=== PATIENT | female | born 1955 | race Caucasian/White ===

== ENCOUNTER 2016-11-07 12:15 | Inpatient (IN) | payer SELFPAY ==
[2016-11-07 12:43] LABS: MPV 8.5 fL (7.4-10.4)
[2016-11-07 12:44] LABS: AUTOMATED BASOPHIL 0.7 % (0-2); AUTOMATED EOSINOPHIL 4.8 % (0-5); AUTOMATED LYMPH 40.9 % (17-44); AUTOMATED MONOCYTE 9.6 % (3-10)
[2016-11-07 12:55] LABS: PARTIAL THROMB. TIME 30.6 SEC (22-35); PT-INR 1.1
[2016-11-07 12:59] LABS: BLOOD UREA NITROGEN 12 MG/DL (7-17); CALC CORRECTED 9.5 MG/DL (8.4-10.2); CALCIUM 9.4 MG/DL (8.4-10.2); CALCULATED OSMOLALITY 267 MOs/Kg (270-290); CHLORIDE 106 mEq/L (98-107); GLUCOSE 112 MG/DL (70-99); SODIUM LEVEL 138 mEq/L (137-146); TOTAL PROTEIN 7.4 G/DL (6.3-8.2)
--- NOTE | 2016-11-07 15:01 | DIRPT ---
CLINICAL DATA: Chest pain and shortness of Breath for 2-3 days. EXAM: CHEST 2 VIEW COMPARISON: 10/15/2015 FINDINGS: The cardiac silhouette, mediastinal and hilar contours are within normal limits and stable. There are chronic bronchitic interstitial lung changes but no infiltrates, edema or effusions. The bony thorax is intact. IMPRESSION: Chronic bronchitic changes possibly related to smoking. No infiltrates or effusions. Electronically Signed By: Paige Denney M.D. On: 11/07/2016 14:59
[2016-11-07] MEDS ORDERED: NS 1,000 ML IV ONE (15:16)
[2016-11-07] MEDS ORDERED: METHYLPREDNISOLONE 125 MG/2 ML VIAL IV ONE (15:16)
[2016-11-07] MEDS ORDERED: Albuterol/Ipratropium Neb 3 ML NEB NEB ONE (15:16)
--- NOTE | 2016-11-07 15:53 | EDPRACDOC ---
- General Information Information Source: Patient Mode Of Arrival: Car - History of Present Illness Onset: YESTERDAY HPI: PT STATES SHE IS HAVING SHOB WITH COUGH. NO ACUTE DISTRESS NOTED. DENIES FEVER, CHILLS, NAUSEA OR VOMITING Shortness of Breath: Mild Relevant History: Reports: None Cough: Reports: Productive, Yellow Rhinorrhea: Reports: Clear Ear Symptoms: Reports: None SOB Worsens with: Reports: Exertion, Movement, Coughing, Lying Flat, Position SOB Improves with: Reports: Sitting up, Rest, Position <Estelle Reddy - Last Filed: 11/07/16 15:51> <Marco Antonio Montes - Last Filed: 11/07/16 16:56> - General Information Chief Complaint: Dyspnea/Resp distress Stated Complaint: TROUBLE BREATHING Time Seen by Provider: 11/07/16 15:15 Home Medications: Home Medications Acetaminophen [Tylenol 8 Hour/Tylenol Arthritis] 650 mg PO Q8H 11/07/16 Albuterol/Ipratropium Neb [Duoneb] 3 ml NEB Q6H PRN #1 box 11/07/16 Benzonatate [Tessalon] 200 mg PO TID #20 per 11/07/16 Guaifenesin/Codeine Phosphate [Cheratussin AC Syrup] 5 ml PO Q4-6H #200 liquid 11/07/16 Methylprednisolone [Medrol] 4 mg PO DAILY #1 tab.ds.pk 11/07/16 Allergies/Adverse Reactions: Allergies Allergy/AdvReac Type Severity Reaction Status Date / Time hydrochlorothiazide Allergy Unknown Verified 11/07/16 12:29 Penicillins Allergy Hives* Verified 11/07/16 12:29 ED Past Medical History - History Reviewed Yes Nurses notes reviewed and agree except as marked - Patient Medical History Cardiac History: Reports: Hypertension, Valvular Heart Disease Respiratory History: Reports: COPD, Pneumonia, Emphysema GI/ History: Reports: Kidney Stones, Gastroesophageal Reflux Musculoskeletal History: Reports: Arthritis, Osteoarthritis Psychological History: Reports: Depression Surgical History: Reports: Appendectomy, Cholecystectomy, Other (right knee, right elbow, left eye, tubal ligation,). Denies: Hysterectomy - Family Medical History Reports: Hypertension (mother), Diabetes (mother), Cancer (father bladder), Cardiac Disorders (parents) - Social Medical History Smoking Status: Heavy tobacco smoker (5 or more cigarettes/day or daily pipe/ cigar) <Estelle Reddy - Last Filed: 11/07/16 15:51> EDM Review of Systems - Review of Systems ROS Negative Except as Marked: Yes All systems reviewed and were negative except as marked <Estelle Reddy - Last Filed: 11/07/16 15:51> - Physical Exam Constitutional: Alert Oriented to: Time, Person, Place Last recorded Vital Signs: Last Vital Signs Temp 98.5 F 11/07/16 12:29 Pulse 71 11/07/16 14:45 Resp 20 11/07/16 14:45 BP 146/76 11/07/16 14:45 Pulse Ox 93 11/07/16 14:45 Oxygen Pulse Oxygen Saturation 93 O2 Device Room Air Oxygen Flow Rate Fraction of Inspired Oxygen ( FIO2) - HEENT Head: Normal ( normocephalic) Eye Exam: Normal (PERRL, EOMI, Sclera white) Oropharynx: Normal (Pharynx:Moist without exudate,Gums-no swelling) Tympanic Membrane: Normal Nose: No Symptoms Reported (septum midline) Neck: Normal (FROM, trachea at midline) - Respiratory/Cardiovascular Respiratory: Tachypnea, Wheezes Cardiovascular: Normal (RRR without murmur, gallop or rub) - GI Auscultation: Normal (NABS) Palpation: Normal (Soft,No rebound or guarding, non distended) Tenderness: Non tender Gtz's Sign: Negative Rectal Exam: Deferred - Musculoskeletal Back: Normal (Non-Tender) Extremities: Normal (Normal tone, Pulses 2+ No cyanosis or edema, FROM) - Integumentary Skin: Normal, Warm, Dry Lymphatics: Normal (no adenopathy) - Neurologic Memory Impaired: Normal Motor Function: Normal (Normal tone, Pulses 2+ No cyanosis or edema, FROM) Cranial Nerve: Normal (CN II-X11 intact sensation, strength 5/5) Cerebellar: Normal Mood Description: Normal Perception: Normal <Estelle Reddy - Last Filed: 11/07/16 15:51> - Physical Exam Last recorded Vital Signs: Last Vital Signs Temp 98.5 F 11/07/16 12:29 Pulse 82 11/07/16 16:03 Resp 20 11/07/16 16:03 BP 140/72 11/07/16 16:03 Pulse Ox 94 11/07/16 16:03 Oxygen Pulse Oxygen Saturation 94 O2 Device Room Air Oxygen Flow Rate Fraction of Inspired Oxygen ( FIO2) <Marco Antonio Montes - Last Filed: 11/07/16 16:56> ED SOB MDM - Differential Diagnosis Differential Diagnosis: Other - Results Result Diagrams: 11/07/16 12:30 11/07/16 12:30 Results: WBC 8.9 xk/uL (3.8-10.8) 11/07/16 12:30 RBC 5.07 xM/uL (4.20-5.40) 11/07/16 12:30 Hgb 16.2 g/dL (12.0-16.0) H 11/07/16 12:30 Hct 47.6 % (36-47) H 11/07/16 12:30 MCV 94 fL (81-99) 11/07/16 12:30 MCH 31.9 pg (27-32) 11/07/16 12:30 MCHC 34.0 g/dl (33-36) 11/07/16 12:30 RDW 13.9 % (11.5-14.5) 11/07/16 12:30 Plt Count 236 xk/uL (130-400) 11/07/16 12:30 MPV 8.5 fL (7.4-10.4) 11/07/16 12:30 Neut % (Auto) 44.0 % (45-76) L 11/07/16 12:30 Lymph % (Auto) 40.9 % (17-44) 11/07/16 12:30 [place] % (Auto) 9.6 % (3-10) 11/07/16 12:30 Eos % (Auto) 4.8 % (0-5) 11/07/16 12:30 Baso % (Auto) 0.7 % (0-2) 11/07/16 12:30 Absolute Neuts (auto) 3.92 xk/uL (1.7-8.2) 11/07/16 12:30 Absolute Lymphs (auto) 3.56 xk/uL (0.65-4.75) 11/07/16 12:30 PT 10.8 SEC (9.2-11.2) 11/07/16 12:30 INR 1.1 11/07/16 12:30 APTT 30.6 SEC (22-35) 11/07/16 12:30 Sodium 138 mEq/L (137-146) 11/07/16 12:30 Potassium 4.0 mEq/L (3.5-5.1) 11/07/16 12:30 Chloride 106 mEq/L (98-107) 11/07/16 12:30 Carbon Dioxide 21 mMOL/L (22-33) L 11/07/16 12:30 Anion Gap 15 mEq/L (8-16) 11/07/16 12:30 BUN 12 MG/DL (7-17) 11/07/16 12:30 Creatinine 0.80 MG/DL (0.52-1.04) 11/07/16 12:30 Estimated GFR (MDRD) > 60 mL/min (>=60) 11/07/16 12:30 Glucose 112 MG/DL (70-99) H 11/07/16 12:30 Calculated Osmolality 267 MOs/Kg (270-290) L 11/07/16 12:30 Calcium 9.4 MG/DL (8.4-10.2) 11/07/16 12:30 Corrected Calcium 9.5 MG/DL (8.4-10.2) 11/07/16 12:30 Total Bilirubin 0.6 MG/DL (0.2-1.3) 11/07/16 12:30 AST 25 IU/L (14-36) 11/07/16 12:30 ALT 35 IU/L (9-52) 11/07/16 12:30 Alkaline Phosphatase 94 IU/L (38-126) 11/07/16 12:30 Troponin I < 0.01 ng/mL (<.04) 11/07/16 12:30 Pph-N-Hidpeqoquiu Pept 263 pg/mL (0-900) 11/07/16 12:30 Total Protein 7.4 G/DL (6.3-8.2) 11/07/16 12:30 Albumin 3.9 G/DL (3.5-5.0) 11/07/16 12:30 Lab Results 11/07/16 11/07/16 11/07/16 12:30 12:30 12:30 WBC 8.9 RBC 5.07 Hgb 16.2 H Hct 47.6 H MCV 94 MCH 31.9 MCHC 34.0 RDW 13.9 Plt Count 236 MPV 8.5 Neut % (Auto) 44.0 L Lymph % (Auto) 40.9 [place] % (Auto) 9.6 Eos % (Auto) 4.8 Baso % (Auto) 0.7 Absolute Neuts (auto) 3.92 Absolute Lymphs (auto) 3.56 PT 10.8 INR 1.1 APTT 30.6 Sodium 138 Potassium 4.0 Chloride 106 Carbon Dioxide 21 L Anion Gap 15 BUN 12 Creatinine 0.80 Estimated GFR (MDRD) > 60 Glucose 112 H Calculated Osmolality 267 L Calcium 9.4 Corrected Calcium 9.5 Total Bilirubin 0.6 AST 25 ALT 35 Alkaline Phosphatase 94 Troponin I < 0.01 Kbx-Y-Qsbgazelwht Pept 263 Total Protein 7.4 Albumin 3.9 <Estelle Reddy - Last Filed: 11/07/16 15:51> - Results Result Diagrams: 11/07/16 12:30 11/07/16 12:30 Results: WBC 8.9 xk/uL (3.8-10.8) 11/07/16 12:30 RBC 5.07 xM/uL (4.20-5.40) 11/07/16 12:30 Hgb 16.2 g/dL (12.0-16.0) H 11/07/16 12:30 Hct 47.6 % (36-47) H 11/07/16 12:30 MCV 94 fL (81-99) 11/07/16 12:30 MCH 31.9 pg (27-32) 11/07/16 12:30 MCHC 34.0 g/dl (33-36) 11/07/16 12:30 RDW 13.9 % (11.5-14.5) 11/07/16 12:30 Plt Count 236 xk/uL (130-400) 11/07/16 12:30 MPV 8.5 fL (7.4-10.4) 11/07/16 12:30 Neut % (Auto) 44.0 % (45-76) L 11/07/16 12:30 Lymph % (Auto) 40.9 % (17-44) 11/07/16 12:30 [place] % (Auto) 9.6 % (3-10) 11/07/16 12:30 Eos % (Auto) 4.8 % (0-5) 11/07/16 12:30 Baso % (Auto) 0.7 % (0-2) 11/07/16 12:30 Absolute Neuts (auto) 3.92 xk/uL (1.7-8.2) 11/07/16 12:30 Absolute Lymphs (auto) 3.56 xk/uL (0.65-4.75) 11/07/16 12:30 PT 10.8 SEC (9.2-11.2) 11/07/16 12:30 INR 1.1 11/07/16 12:30 APTT 30.6 SEC (22-35) 11/07/16 12:30 Puncture Site Right radial 11/07/16 16:05 pH 7.410 pH UNITS (7.35-7.45) 11/07/16 16:05 pCO2 38.0 mmHg (35-45) 11/07/16 16:05 pO2 53.0 mmHg (80-100) L 11/07/16 16:05 HCO3 24.1 MMOL/L (22-26) 11/07/16 16:05 Total CO2 25.3 MMOL/L (23-27) 11/07/16 16:05 Base Excess -0.3 (+/- 2) 11/07/16 16:05 FiO2 % 21% 11/07/16 16:05 Specimen Drawn By Stana 11/07/16 16:05 Sodium 138 mEq/L (137-146) 11/07/16 12:30 Potassium 4.0 mEq/L (3.5-5.1) 11/07/16 12:30 Chloride 106 mEq/L (98-107) 11/07/16 12:30 Carbon Dioxide 21 mMOL/L (22-33) L 11/07/16 12:30 Anion Gap 15 mEq/L (8-16) 11/07/16 12:30 BUN 12 MG/DL (7-17) 11/07/16 12:30 Creatinine 0.80 MG/DL (0.52-1.04) 11/07/16 12:30 Estimated GFR (MDRD) > 60 mL/min (>=60) 11/07/16 12:30 Glucose 112 MG/DL (70-99) H 11/07/16 12:30 Calculated Osmolality 267 MOs/Kg (270-290) L 11/07/16 12:30 Calcium 9.4 MG/DL (8.4-10.2) 11/07/16 12:30 Corrected Calcium 9.5 MG/DL (8.4-10.2) 11/07/16 12:30 Total Bilirubin 0.6 MG/DL (0.2-1.3) 11/07/16 12:30 AST 25 IU/L (14-36) 11/07/16 12:30 ALT 35 IU/L (9-52) 11/07/16 12:30 Alkaline Phosphatase 94 IU/L (38-126) 11/07/16 12:30 Troponin I < 0.01 ng/mL (<.04) 11/07/16 15:35 Gzw-W-Nyqwpkeeadh Pept 263 pg/mL (0-900) 11/07/16 12:30 Total Protein 7.4 G/DL (6.3-8.2) 11/07/16 12:30 Albumin 3.9 G/DL (3.5-5.0) 11/07/16 12:30 Urine Color Yellow 11/07/16 15:55 Urine Clarity Clear 11/07/16 15:55 Urine pH 5.0 (5.0-8.0) 11/07/16 15:55 Ur Specific [place] 1.005 (1.003-1.035) 11/07/16 15:55 Urine Protein Neg (NEG/TRACE) 11/07/16 15:55 Urine Glucose (UA) Neg (NEGATIVE) 11/07/16 15:55 Urine Ketones Neg (NEGATIVE) 11/07/16 15:55 Urine Occult Blood Neg (NEG/TRACE) 11/07/16 15:55 Urine Nitrite Neg (NEGATIVE) 11/07/16 15:55 Urine Bilirubin Neg (NEGATIVE) 11/07/16 15:55 Urine Urobilinogen <2.0 MG/DL (0-1) 11/07/16 15:55 Ur Leukocyte Esterase Neg (NEGATIVE) 11/07/16 15:55 Urine RBC 0-2 (0-5) 11/07/16 15:55 Urine WBC 0-2 (0-5) 11/07/16 15:55 Lab Results 11/07/16 11/07/16 11/07/16 16:05 15:55 15:35 WBC RBC Hgb Hct MCV MCH MCHC RDW Plt Count MPV Neut % (Auto) Lymph % (Auto) [place] % (Auto) Eos % (Auto) Baso % (Auto) Absolute Neuts (auto) Absolute Lymphs (auto) PT INR APTT Puncture Site Right radial pH 7.410 pCO2 38.0 pO2 53.0 L HCO3 24.1 Total CO2 25.3 Base Excess -0.3 FiO2 % 21% Specimen Drawn By Stana Sodium Potassium Chloride Carbon Dioxide Anion Gap BUN Creatinine Estimated GFR (MDRD) Glucose Calculated Osmolality Calcium Corrected Calcium Total Bilirubin AST ALT Alkaline Phosphatase Troponin I < 0.01 Ypr-C-Wjyeisqbwzg Pept Total Protein Albumin Urine Color Yellow Urine Clarity Clear Urine pH 5.0 Ur Specific [place] 1.005 Urine Protein Neg Urine Glucose (UA) Neg Urine Ketones Neg Urine Occult Blood Neg Urine Nitrite Neg Urine Bilirubin Neg Urine Urobilinogen <2.0 Ur Leukocyte Esterase Neg Urine RBC 0-2 Urine WBC 0-2 11/07/16 11/07/16 11/07/16 12:30 12:30 12:30 WBC 8.9 RBC 5.07 Hgb 16.2 H Hct 47.6 H MCV 94 MCH 31.9 MCHC 34.0 RDW 13.9 Plt Count 236 MPV 8.5 Neut % (Auto) 44.0 L Lymph % (Auto) 40.9 [place] % (Auto) 9.6 Eos % (Auto) 4.8 Baso % (Auto) 0.7 Absolute Neuts (auto) 3.92 Absolute Lymphs (auto) 3.56 PT 10.8 INR 1.1 APTT 30.6 Puncture Site pH pCO2 pO2 HCO3 Total CO2 Base Excess FiO2 % Specimen Drawn By Sodium 138 Potassium 4.0 Chloride 106 Carbon Dioxide 21 L Anion Gap 15 BUN 12 Creatinine 0.80 Estimated GFR (MDRD) > 60 Glucose 112 H Calculated Osmolality 267 L Calcium 9.4 Corrected Calcium 9.5 Total Bilirubin 0.6 AST 25 ALT 35 Alkaline Phosphatase 94 Troponin I < 0.01 Nmu-V-Triijmywmdy Pept 263 Total Protein 7.4 Albumin 3.9 Urine Color Urine Clarity Urine pH Ur Specific [place] Urine Protein Urine Glucose (UA) Urine Ketones Urine Occult Blood Urine Nitrite Urine Bilirubin Urine Urobilinogen Ur Leukocyte Esterase Urine RBC Urine WBC <Marco Antonio Montes - Last Filed: 11/07/16 16:56> - Departure Disposition: Home Education/Counseling Given To: Patient Education/Counseling Given Regarding: Diagnosis, Treatment, Prognosis, Follow Up <Estelle Reddy - Last Filed: 11/07/16 15:51> - Departure Yes I personally saw and evaluated the patient. Disposition: Admit IP To This Hospital Decision to Admit Time: 16:56 Decision to admit date: 11/07/16 Decision to admit: from ED - Physician Consulted Hospitalist Time Called: 16:55 Provider Called: Deon Carpio Time Cargoman Returned Call: 16:55 <Marco Antonio Montes - Last Filed: 11/07/16 16:56> - Departure Condition: Stable Final Diagnosis: Acute bronchitis Prescriptions: Albuterol/Ipratropium Neb [Duoneb] 3 ml NEB Q6H PRN #1 box PRN Reason: Shortness Of Breath Benzonatate [Tessalon] 200 mg PO TID #20 per Guaifenesin/Codeine Phosphate [Cheratussin AC Syrup] 5 ml PO Q4-6H #200 liquid Methylprednisolone [Medrol] 4 mg PO DAILY #1 tab.ds.pk Additional Instructions: FOLLOW UP WITH PCP NEXT WEEK. RETURN TO THE ED FOR WORSENING SYMPTOMS OR CONCERNS
[2016-11-07 16:11] LABS: LEUKOCYTES/URINE NEG (NEGATIVE); NITRITE/URINE NEG (NEGATIVE); RBC/URINE 0-2 (0-5); URINE OCCULT BLOOD NEG (NEG/TRACE); WBC/URINE 0-2 (0-5)
[2016-11-07 16:14] LABS: ALLEN'S TEST PASS; BEb -0.3 (+/- 2); TCO2 25.3 MMOL/L (23-27)
[2016-11-07 16:17] LABS: ABG Draw Site Right Radial
[2016-11-07] MEDS ORDERED: ONDANSETRON HCL 4 MG/2 ML VIAL IV PRN (17:17)
[2016-11-07] MEDS ORDERED: ALBUTEROL 0.083% 3 ML NEB NEB PRN (17:17)
--- NOTE | 2016-11-07 17:23 | HISTPHYS ---
- Chief Complaint Cough, shortness of breath - History of Present Illness This is a 61-year-old woman with history of COPD, was an active smoker is being admitted to the hospital this afternoon due to significant worsening of her shortness of breath and productive cough. The patient tells me that she has been her usual state of health until couple days ago, when she started to develop some chest tightness and burning, similar to her GERD, with associated cough which is worsened over the last couple of days, the cough is productive of thick white sputum. She denies any fevers, chills, nausea, vomiting, headache, blurred vision, diarrhea or constipation. No sick contacts. She is also becoming more short of breath with exertion. She does not use oxygen at home. She has a nebulizer at home, has been doing duo nebs, but they have stopped helping. - Medical History Cardiac History: Reports: Hypertension, Valvular Heart Disease Respiratory History: Reports: COPD, Pneumonia, Emphysema GI/ History: Reports: Kidney Stones, Gastroesophageal Reflux Musculoskeletal History: Reports: Arthritis, Osteoarthritis Psychological History: Reports: Depression - Surgical History Reports: Appendectomy, Cholecystectomy, Other (right knee, right elbow, left eye , tubal ligation,). Denies: Hysterectomy - Medictions/Allergies Allergies hydrochlorothiazide Allergy (Verified 11/07/16 12:29) Unknown drains calicum Penicillins Allergy (Verified 11/07/16 12:29) Hives* Home Medications Acetaminophen [Tylenol 8 Hour/Tylenol Arthritis] 650 mg PO Q8H 11/07/16 Albuterol/Ipratropium Neb [Duoneb] 3 ml NEB Q6H PRN #1 box 11/07/16 Benzonatate [Tessalon] 200 mg PO TID #20 per 11/07/16 Guaifenesin/Codeine Phosphate [Cheratussin AC Syrup] 5 ml PO Q4-6H #200 liquid 11/07/16 Methylprednisolone [Medrol] 4 mg PO DAILY #1 tab.ds.pk 11/07/16 - Family History Reports: Hypertension (mother), Diabetes (mother), Cancer (father bladder), Cardiac Disorders (parents) - Social History Smoking Status: Heavy tobacco smoker (5 or more cigarettes/day or daily pipe/ cigar) - Review of Systems Yes All systems reviewed and were negative except as marked (Except as mentioned in the history of present illness above) - Physical Exam Vital Signs: Initial Vitals Temperature 98.5 F 11/07/16 12:29 Pulse Rate 73 11/07/16 12:29 Respiratory Rate 22 11/07/16 12:29 Blood Pressure 124/58 L 11/07/16 12:29 Pulse Oxygen Saturation 96 11/07/16 12:29 Constitutional: Distress Oriented to: Time, Person, Place Respiratory: Accessory Muscle Use, Diminished, Rales, Rhonchi, Wheezes Cardiovascular: Normal (RRR, no murmurs, rubs or gallops) - GI Palpation: Normal (soft, non distended and nontender) - Musculoskeletal Extremities: Normal (normal tone, no cyanosis or edema) - Other Exam Other Exam Findings: Obese woman sitting on the edge of the stretcher in the emergency department, leaned forward. No pursed breathing, but significant wheezing and rhonchi. Decent amount of air movement. - Focused CV Perfusion Exam Vital Signs: Last Vital Signs Temp 98.5 F 11/07/16 12:29 Pulse 82 11/07/16 16:03 Resp 20 11/07/16 16:03 BP 140/72 11/07/16 16:03 Pulse Ox 94 11/07/16 16:03 - Lab Results Laboratory Tests 11/07/16 11/07/16 11/07/16 12:30 12:30 12:30 WBC 8.9 Hgb 16.2 H INR 1.1 pH pCO2 pO2 Potassium 4.0 BUN 12 Creatinine 0.80 AST 25 ALT 35 Troponin I < 0.01 11/07/16 16:05 WBC Hgb INR pH 7.410 pCO2 38.0 pO2 53.0 L Potassium BUN Creatinine AST ALT Troponin I - Diagnostic Findings Chest x-ray without any acute findings, chronic emphysematous changes. - Assessment (1) Acute exacerbation of chronic obstructive airways disease J44.1 - CHRONIC OBSTRUCTIVE PULMONARY DISEASE W (ACUTE) EXACERBATION Acute Patient being admitted to the hospital with COPD exacerbation, consisting of significant dyspnea with exertion, cough productive of more sputum, wheezing. She will be admitted to the hospital for supplemental oxygen, scheduled IV steroid taper, mucolytic, empiric IV antibiotics. She smokes about half a pack a day, she says she has cut back significantly. Strongly encouraged to cease tobacco abuse. (2) Acute respiratory failure with hypoxia J96.01 - ACUTE RESPIRATORY FAILURE WITH HYPOXIA Acute Continue O2 and nebs, pulmonary toilet. (3) Blood pressure elevated I10 - ESSENTIAL (PRIMARY) HYPERTENSION Acute (4) GERD (gastroesophageal reflux disease) K21.9 - GASTRO-ESOPHAGEAL REFLUX DISEASE WITHOUT ESOPHAGITIS Chronic Qualifiers: Esophagitis presence: without esophagitis Qualified Code(s): K21.9 - Gastro -esophageal reflux disease without esophagitis Continue PPI . (5) HTN (hypertension) I10 - ESSENTIAL (PRIMARY) HYPERTENSION Chronic Qualifiers: Hypertension type: essential hypertension Qualified Code(s): I10 - Essential (primary) hypertension Stable. Keep SBP less than 140 (6) Nicotine addiction F17.200 - NICOTINE DEPENDENCE, UNSPECIFIED, UNCOMPLICATED Chronic Qualifiers: Nicotine product type: cigarettes Substance use status: unspecified nicotine-induced disorder Qualified Code(s): F17.219 - Nicotine dependence, cigarettes, with unspecified nicotine-induced disorders Again stressed importance of quitting smoking. Case Care Discussed with: Patient, Family, Nursing Staff Total Time: 45
[2016-11-07] MEDS: Levofloxacin 750 mg/150 ml D5W 750 MG/150 ML RTU IV SCH (18:21)
[2016-11-07] MEDS ORDERED: AZITHROMYCIN 500 MG in D5W 250 ML IV SCH (20:00)
[2016-11-07] MEDS: Albuterol/Ipratropium Neb 3 ML NEB NEB SCH (20:39)
[2016-11-07] MEDS ORDERED: NS 500 ML IV ONE (21:27)
[2016-11-07] MEDS: METHYLPREDNISOLONE 125 MG/2 ML VIAL IV SCH (21:32)
[2016-11-07] MEDS: ENOXAPARIN 40 MG/0.4 ML PFS SQ SCH (21:33)
[2016-11-07] MEDS: NICOTINE 14 MG PATCH TOP SCH (22:13)
[2016-11-07] MEDS: ACETAMINOPHEN 325 MG/TAB TABLET PO PRN (22:19)
[2016-11-07 22:23] VITALS: BMI 37.3
[2016-11-07] MEDS ORDERED: Vaccine Screening Complete SCH (23:00)
[2016-11-08] MEDS: Albuterol/Ipratropium Neb 3 ML NEB NEB SCH ×4 (02:25→21:11)
[2016-11-08] MEDS: METHYLPREDNISOLONE 125 MG/2 ML VIAL IV SCH ×3 (04:53→16:53)
[2016-11-08 07:09] LABS: MPV 8.7 fL (7.4-10.4)
[2016-11-08 07:26] LABS: BLOOD UREA NITROGEN 11 MG/DL (7-17); CALCIUM 9.9 MG/DL (8.4-10.2); CALCULATED OSMOLALITY 272 MOs/Kg (270-290); CHLORIDE 108 mEq/L (98-107); GLUCOSE 134 MG/DL (70-99); SODIUM LEVEL 141 mEq/L (137-146)
[2016-11-08] MEDS ORDERED: FLU VACCINE (Afluria) 0.5 ML DOSE IM ONE (08:00)
--- NOTE | 2016-11-08 08:04 | GENMEDPROG ---
Chief Complaint: COPD EXACERB, Currently: Reports: Cough, Wheezing DVT Prophylaxis: Yes - Physical Examination Vital Signs and I&O: Last Vital Signs Temp 97.7 F 11/08/16 05:46 Pulse 85 11/08/16 05:46 Resp 20 11/08/16 05:46 BP 118/70 11/08/16 05:46 Pulse Ox 92 11/08/16 05:46 Oxygen Pulse Oxygen Saturation 92 O2 Device Nasal Cannula Oxygen Flow Rate 2 Fraction of Inspired Oxygen ( FIO2) Intake & Output 11/05/16 11/06/16 11/07/16 11/08/16 23:59 23:59 23:59 23:59 Intake Total 1100 358 Balance 1100 358 Patient's weight 92.675 kg General: Alert, Oriented x3, Cooperative, No acute distress HEENT: Normal, PERRLA, EOMI, Anicteric Sclera, Mucous membr. moist/pink Neck: Non-tender, Full range of motion, Normal Trachea alignment, Normal inspection Lymphatics: Normal Respiratory: Normal - CTA, Diminished Cardiovascular: Regular rate and rhythm, Normal S1, Normal S2 GI: Normal bowel sounds, Soft, Non tender, No masses Extremities/Musculoskeletal: Normal pulses, DJD, FROM. negative: Edema, Clubbing, Cyanosis Skin: Warm,Dry and Intact, No rashes, No breakdown, Rash Neurological: Normal Steady Gait, Normal speech, Strength at 5/5 X4 ext, Normal tone Psych/Mental Status: Appropriate, Normal Affect, Cooperative - Assessment (1) Acute exacerbation of chronic obstructive airways disease Acute J44.1 - CHRONIC OBSTRUCTIVE PULMONARY DISEASE W (ACUTE) EXACERBATION Comment/Plan: Patient being admitted to the hospital with COPD exacerbation, consisting of significant dyspnea with exertion, cough productive of more sputum , wheezing. She is receiving supplemental oxygen, a steroid taper, mucolytics, & empiric IV antibiotics. She smokes about half a pack a day, but she says she has cut back significantly. Strongly encouraged to cease tobacco abuse. (2) Acute bronchitis Acute J20.9 - ACUTE BRONCHITIS, UNSPECIFIED Comment/Plan: Improving since admission. (3) GERD (gastroesophageal reflux disease) Chronic K21.9 - GASTRO-ESOPHAGEAL REFLUX DISEASE WITHOUT ESOPHAGITIS Qualifiers: Esophagitis presence: without esophagitis Qualified Code(s): K21.9 - Gastro -esophageal reflux disease without esophagitis Comment/Plan: Continue PPI . (4) HTN (hypertension) Chronic I10 - ESSENTIAL (PRIMARY) HYPERTENSION Qualifiers: Hypertension type: essential hypertension Qualified Code(s): I10 - Essential (primary) hypertension Comment/Plan: Stable. Keep SBP less than 140 (5) Nicotine addiction Chronic F17.200 - NICOTINE DEPENDENCE, UNSPECIFIED, UNCOMPLICATED Qualifiers: Nicotine product type: cigarettes Substance use status: unspecified nicotine-induced disorder Qualified Code(s): F17.219 - Nicotine dependence, cigarettes, with unspecified nicotine-induced disorders Comment/Plan: Again stressed importance of quitting smoking.
[2016-11-08] MEDS: ACETAMINOPHEN 325 MG/TAB TABLET PO PRN ×2 (08:36→15:06)
[2016-11-08] MEDS: ENOXAPARIN 40 MG/0.4 ML PFS SQ SCH (16:54)
[2016-11-08] MEDS: Levofloxacin 750 mg/150 ml D5W 750 MG/150 ML RTU IV SCH (16:57)
[2016-11-08] MEDS: NICOTINE 14 MG PATCH TOP SCH (19:57)
[2016-11-08] MEDS ORDERED: TEMAZEPAM 15 MG CAP PO PRN (20:43)
[2016-11-08] MEDS: METHYLPREDNISOLONE 40 MG/1 ML VIAL IV SCH (23:04)
[2016-11-09] MEDS: Albuterol/Ipratropium Neb 3 ML NEB NEB SCH ×2 (01:20→07:34)
[2016-11-09 07:02] LABS: MPV 9.1 fL (7.4-10.4)
[2016-11-09 07:17] LABS: BLOOD UREA NITROGEN 18 MG/DL (7-17); CALCIUM 9.9 MG/DL (8.4-10.2); CALCULATED OSMOLALITY 277 MOs/Kg (270-290); CHLORIDE 106 mEq/L (98-107); GLUCOSE 129 MG/DL (70-99); SODIUM LEVEL 142 mEq/L (137-146)
[2016-11-09] MEDS: METHYLPREDNISOLONE 40 MG/1 ML VIAL IV SCH (07:43)
[2016-11-09] MEDS: ACETAMINOPHEN 325 MG/TAB TABLET PO PRN (07:47)
--- NOTE | 2016-11-09 08:39 | PCM.DCS92 ---
- Final/Secondary Discharge Diagnosis (1) Acute exacerbation of chronic obstructive airways disease Acute J44.1 - CHRONIC OBSTRUCTIVE PULMONARY DISEASE W (ACUTE) EXACERBATION Present on Admission: Yes Comment: Patient was admitted to the hospital with COPD exacerbation, consisting of significant dyspnea with exertion, cough productive of more sputum , wheezing. She is receiving supplemental oxygen, a steroid taper, mucolytics, & empiric IV antibiotics. She smokes about half a pack a day, but she says she has cut back significantly. She was strongly encouraged to cease tobacco abuse. (2) Acute bronchitis Acute J20.9 - ACUTE BRONCHITIS, UNSPECIFIED Present on Admission: Yes Comment: Improving since admission. (3) GERD (gastroesophageal reflux disease) Chronic K21.9 - GASTRO-ESOPHAGEAL REFLUX DISEASE WITHOUT ESOPHAGITIS Present on Admission: Yes without esophagitis K21.9 - Gastro-esophageal reflux disease without esophagitis Comment: Continue PPI . (4) HTN (hypertension) Chronic I10 - ESSENTIAL (PRIMARY) HYPERTENSION Present on Admission: Yes essential hypertension I10 - Essential (primary) hypertension Comment: Stable. Keep SBP less than 140 (5) Nicotine addiction Chronic F17.200 - NICOTINE DEPENDENCE, UNSPECIFIED, UNCOMPLICATED Present on Admission: Yes cigarettes unspecified nicotine-induced disorder F17.219 - Nicotine dependence, cigarettes, with unspecified nicotine-induced disorders Comment: Again stressed importance of quitting smoking. Discharge Disposition: Home Discharge Condition: Improved Cognitive Discharge Status: Unimpaired Fuctional Discharge Status: Independent Physician Follow up/Referrals: Nancy Serrato PA [NonStaff] - One Week New Prescriptions: Albuterol/Ipratropium Neb [Duoneb] 3 ml NEB Q6H PRN #1 box PRN Reason: Shortness Of Breath Benzonatate [Tessalon] 200 mg PO TID #20 per Guaifenesin/Codeine Phosphate [Cheratussin AC Syrup] 5 ml PO Q4-6H #200 liquid Levofloxacin [Levaquin] 750 mg PO DAILY #5 tab Methylprednisolone [Medrol] 4 mg PO DAILY #1 tab.ds.pk Nicotine [Nicoderm] 14 mg TOP Q24H #30 pat Discharge Home Medication List Acetaminophen [Tylenol 8 Hour/Tylenol Arthritis] 650 mg PO Q8H 11/07/16 [ History Confirmed 11/07/16 Last Taken 11/07/16] Albuterol/Ipratropium Neb [Duoneb] 3 ml NEB Q6H PRN #1 box 11/09/16 [Rx Last Taken Unknown] Benzonatate [Tessalon] 200 mg PO TID #20 per 11/09/16 [Rx Last Taken Unknown] Guaifenesin/Codeine Phosphate [Cheratussin AC Syrup] 5 ml PO Q4-6H #200 liquid 11/09/16 [Rx Last Taken Unknown] Levofloxacin [Levaquin] 750 mg PO DAILY #5 tab 11/09/16 [Rx Last Taken Unknown] Methylprednisolone [Medrol] 4 mg PO DAILY #1 tab.ds.pk 11/09/16 [Rx Last Taken Unknown] Nicotine [Nicoderm] 14 mg TOP Q24H #30 pat 11/09/16 [Rx Last Taken Unknown] O2 Device: Room Air Additional Instructions: FOLLOW UP WITH PCP NEXT WEEK. RETURN TO THE ED FOR WORSENING SYMPTOMS OR CONCERNS Diet at Discharge: Heart Healthy Activity: As Tolerated Call Office For: Worsening Symptoms, Fever over 101 F Discontinue use of:: Alcohol, All Types of Tobacco - DC Summary Notes Hospital Course Note:: Discharge summary on patient named NOEMÍ BEAUCHAMP admitted to [facility] on 11/07/16 by Yaya Hernandez MD. Date of discharge is []. This is a 61-year-old woman with history of COPD, was an active smoker is being admitted to the hospital this afternoon due to significant worsening of her shortness of breath and productive cough. The patient tells me that she has been her usual state of health until couple days ago, when she started to develop some chest tightness and burning, similar to her GERD, with associated cough which is worsened over the last couple of days, the cough is productive of thick white sputum. She denies any fevers, chills, nausea, vomiting, headache, blurred vision, diarrhea or constipation. No sick contacts. She is also becoming more short of breath with exertion. She does not use oxygen at home. She has a nebulizer at home, has been doing duo nebs, but they have stopped helping. Patient was admitted to the hospital with COPD exacerbation, consisting of significant dyspnea with exertion, cough productive of more sputum, wheezing. She is receiving supplemental oxygen, a steroid taper, mucolytics, & empiric IV antibiotics. She smokes about half a pack a day, but she says she has cut back significantly. She was strongly encouraged to cease tobacco abuse. The patient has improved significantly to the point that she can continue her recovery course at home. She has been weaned off her oxygen, and will be discharged home today. She is to follow-up with her primary care provider in 1 week. Total Time: 35 min Code: 25086 (>30min.) - Physical Exam Vital Signs: Last Vital Signs Temp 97.9 F 11/09/16 06:00 Pulse 77 11/09/16 06:00 Resp 18 11/09/16 06:00 BP 120/58 L 11/09/16 06:00 Pulse Ox 94 11/09/16 07:36 Oxygen Pulse Oxygen Saturation 94 O2 Device Nasal Cannula Oxygen Flow Rate 1 Fraction of Inspired Oxygen ( FIO2) Constitutional: No apparent distress, Alert Oriented to: Time, Person, Place - HEENT Head: Normal ( normocephalic) Eye: Normal (PERRL, EOMI, Sclera white) Oropharynx: Normal (Pharynx:Moist without exudate,Gums-no swelling) Tympanic Membrane: Normal ENT EAC: Normal Nose: No Symptoms Reported (septum midline) - Respiratory/Cardiovascular Respiratory: Normal - CTA Cardiovascular: Normal - GI Auscultation: Normal Palpation: Normal (soft, non distended and nontender) Tenderness: Non tender Rectal Exam: Deferred - Musculoskeletal Back: Normal Extremities: Normal (normal tone, no cyanosis or edema) - Integumentary Skin: Warm, Dry Lymphatics: Normal - Neurologic Memory Impaired: Normal Motor Function: Normal Cranial Nerve: Normal Cerebellar: Normal Mood Description: Normal Thought: Coherent Perception: Normal
[2016-11-09 09:56] VITALS: BP 125/63; PULSE 89; TEMP 97
== END 2016-11-09 11:45 | disposition home or self-care (01) | DRG 192 ==
LOC: ED 12:15 → UNDOADMIN 17:17 → MPS3 17:17 → EDINP 17:17 → MPS3 19:00
PROVIDERS: ADMIT Internal Medicine; ATTEND Family Medicine
PROC: 039B3ZZ Drainage of Right Radial Artery, Percutaneous Approach (ICD-10-PCS; principal; 2016-11-07)
DX: J44.0 Chronic obstructive pulmonary disease with (acute) lower respiratory infection (principal); I10 Essential (primary) hypertension; J20.9 Acute bronchitis, unspecified; J44.1 Chronic obstructive pulmonary disease with (acute) exacerbation; K21.9 Gastro-esophageal reflux disease without esophagitis; F17.219 Nicotine dependence, cigarettes, with unspecified nicotine-induced disorders; I51.9 Heart disease, unspecified; Z87.01 Personal history of pneumonia (recurrent); M19.90 Unspecified osteoarthritis, unspecified site; F32.9 Major depressive disorder, single episode, unspecified; Z88.0 Allergy status to penicillin; Z88.8 Allergy status to other drugs, medicaments and biological substances; Z79.899 Other long term (current) drug therapy; R09.02 Hypoxemia
CPT/HCPCS: 36415; 36600; 71020; 80048; 80053; 81001; 82803; 83880; 84484; 85025; 85027; 85610; 85730; 90656; 93005; 94640; 96361; 96372; 96374; 98960; 99284; 99406; G0237; J0456; J1650; J1956; J2920; J2930; J3490; J7070; J7620